=== PATIENT | female | born 1945 | race African-American/Black ===

== ENCOUNTER 2018-03-23 10:06 | Emergency (ER) | payer OTHER ==
[~2018-03-23] VITALS: Ht 165.1 cm; Wt 90.3 kg
[~2018-03-23 10:06] MED LIST: ASPIRIN ADULT L81 M2 PO; CELEBREX200 MG PO; MULTI VITAMINS1 TAB PO; PERCOCET 325 MG1 TA2 PO
[2018-03-23 10:19] VITALS: BP 142/83
[2018-03-23] MEDS ORDERED: CYCLOBENZAPRINE5 M2 PO (13:36)
--- NOTE | 2018-03-23 13:36 | ED GENERAL ADULT ---
History of Present Illness General Chief Complaint: Low Back Pain/Injury Stated Complaint: RIGHT SIDED BACK PAIN Source: patient Exam Limitations: no limitations Vital Signs & Intake/Output Vital Signs & Intake/Output Vital Signs Date Time Temp Pulse Resp B/P B/P Pulse O2 O2 Flow FiO2 Mean Ox Delivery Rate 03/23 1019 97.1 81 20 142/83 96 Room Air Allergies Coded Allergies: NO KNOWN ALLERGIES (03/05/11) Reconcile Medications Celecoxib (Celebrex) 200 MG CAPSULE 1 CAP PO DAILY PRN ARTHRITIS (Reported) Cyclobenzaprine HCl 5 MG TABLET 1 TAB PO TIDPRN PRN MUSCLE SPASM/BACK PAIN Triage Note: PT TO ED C/O RIGHT SIDED BACK PAIN SINCE WEDNESDAY. STATES SHE WAS CLEANING AND MOVING, "I OVER DID IT". TRIED TYLENOL AND HEAT WITH NO RELIEF. Triage Nurses Notes Reviewed? yes HPI: Patient is a 72-year-old female with past medical history as outlined below who presents today 48 hours after cleaning her house with back pain to her right rhomboid/trapezius region. She feels that she "overdid it," and considered calling her PCP but presented here to the emergency department for more expeditious evaluation. She denies any chest pain, shortness of breath, or other symptoms at this time. Past History Travel History Traveled to [place] past 21 day No Medical History Any Pertinent Medical History? see below for history Cardiovascular: hyperlipidemia Musculoskeletal: osteoarthritis Surgical History Surgical History: non-contributory Psychosocial History What is your primary language Singaporean Tobacco Use: Never used ETOH Use: denies use Illicit Drug Use: denies illicit drug use Family History Hx Contributory? No Review of Systems Review of Systems Constitutional: Reports: see HPI. Musculoskeletal: Reports: back pain, muscle pain. Physical Exam Physical Exam General Appearance: well developed/nourished, no apparent distress, alert, awake Comments: HEENT: Inspection of the head reveals a normocephalic cranium with no signs of trauma. Ophtho: Extraocular muscles are intact. The sclera are noninjected, and there is no obvious discharge. Neck: No signs of trauma or asymmetry to the neck. Respiratory: The patient exhibits no signs of labored breathing. Cardiac: Non-tachycardic. GI: No gross abdominal distention. : Deferred Back: Patient has tenderness in the right trapezius region, focally in the rhomboid region. No midline cervical or thoracic tenderness, and no overt signs of trauma or other externally visible abnormality. Neuro: The patient is oriented to person, place, time, and situation, with no obvious focal motor deficits. Cranial nerves II through XII are intact, and gait is normal. Behavioral: Calm and cooperative Dermatologic: Dermatologic examination reveals no obvious rashes or exanthems. Core Measures ACS in differential dx? No CVA/TIA Diagnosis: No Sepsis Present: No Sepsis Focused Exam Completed? No Progress Differential Diagnoses I considered the following diagnoses in my evaluation of the patient: Muscle spasm, muscle strain, unlikely acute coronary syndrome or intrathoracic pathology Plan of Care: Orders Procedure Date/time Status URINALYSIS 03/23 1137 Complete Laboratory Tests 03/23/18 1331: Urine Color YEL, Urine Clarity CLEAR, Urine pH 6.0, Ur Specific [place] 1.015, Urine Protein NEG, Urine Ketones NEG, Urine Nitrite NEG, Urine Bilirubin NEG, Urine Urobilinogen 0.2, Ur Leukocyte Esterase SMALL H, Ur Microscopic SEDIMENT EXAMINED, Urine RBC RARE, Urine WBC 1-3 H, Ur Epithelial Cells MOD H, Urine Bacteria MOD H, Urine Hemoglobin TRACE-INTACT, Urine Glucose NEG Initial ED EKG: none Comments: Clinically, the patient appears to have suffered an acute muscle sprain with possible proposed spasm. She has been using low doses of NSAIDs at home so I recommended continued use of both this and acetaminophen with heating pads and stretching/massage. I did prescribe a short prescription of cyclobenzaprine to help with her muscle spasm. Medical screening examination otherwise negative, patient stable at time of discharge. Departure Departure Time of Disposition: 1333 Disposition: HOME OR SELF CARE Condition: Stable Clinical Impression Primary Impression: Thoracic back sprain Qualifiers: Encounter type: initial encounter Qualified Code: S23.9XXA - Sprain of unspecified parts of thorax, initial encounter Referrals: Angela Jerry MD (PCP/Family) Additional Instructions: Please use the cyclobenzaprine (Flexeril) prescription we prescribed to your pharmacy for your pain, which is most likely due to a muscle spasm. You may also benefit from topical patches which you can buy [id number] such as BenGay or Salonpas. Please follow-up with her primary doctor for ongoing discomfort, for referral to physical therapy or massage therapy as needed. Departure Forms: Customer Survey General Discharge Information Prescriptions: Current Visit Scripts Cyclobenzaprine HCl 1 TAB PO TIDPRN PRN MUSCLE SPASM/BACK PAIN #10 TAB Critical Care Note Critical Care Note Critical Care Time: non-applicable
== END 2018-03-23 13:42 ==
LOC: ERH 10:06
DX: S23.3XXA Sprain of ligaments of thoracic spine, initial encounter (principal); X50.9XXA Other and unspecified overexertion or strenuous movements or postures, initial encounter; Y93.E9 Activity, other interior property and clothing maintenance; Y92.009 Unspecified place in unspecified non-institutional (private) residence as the place of occurrence of the external cause
CPT/HCPCS: 81001